=== PATIENT | male | born 1985 | race Caucasian/White ===

== ENCOUNTER 2019-08-25 11:44 | Emergency (ER) | payer OTHER ==
[2019-08-25 12:10] VITALS: BP 124/66
--- NOTE | 2019-08-25 12:36 | UC ---
Lower Extremity/Ankle HPI - HPI Summary HPI Summary: The patient is a 34 yo male who had a near fall when he slipped on ice yesterday jammed right foot c/o pain lateral foot and heal/calf/knee and post thigh muscles fell tight Hx of loose body right knee for which he was supposed to go to [facility] for evaluation but never did able to bear wt with a slight limp - History of Current Complaint Chief Complaint: UCLowerExtremity Stated Complaint: RT LEG INJURY Time Seen by Provider: 08/25/19 12:20 Hx Obtained From: Patient Onset/Duration: Sudden Onset Severity Initially: Mild Severity Currently: Moderate Pain Intensity: 7 Pain Scale Used: 0-10 Numeric Aggravating Factor(s): Standing, Ambulation Alleviating Factor(s): Rest Able to Bear Weight: Yes Legs: 1 - pain 2 - pain 3 - pain 4 - pain 5 - pain - Allergies/Home Medications Allergies/Adverse Reactions: Allergies Allergy/AdvReac Type Severity Reaction Status Date / Time No Known Allergies Allergy Verified 08/25/19 12:03 PMH/Surg Hx/FS Hx/Imm Hx Previously Healthy: Yes - Surgical History Surgical History: None - Social History Alcohol Use: None Substance Use Type: Marijuana Substance Use Comment - Amount & Last Used: daily use Smoking Status (MU): Heavy Every Day Tobacco Smoker Type: Cigarettes Amount Used/How Often: 1/2 PPD Review of Systems All Other Systems Reviewed And Are Negative: Yes Constitutional: Positive: Negative Skin: Positive: Negative Eyes: Positive: Negative ENT: Positive: Negative Respiratory: Positive: Negative Cardiovascular: Positive: Negative Gastrointestinal: Positive: Negative Genitourinary: Positive: Negative Motor: Positive: Negative Neurovascular: Positive: Negative Musculoskeletal: Positive: Arthralgia, Myalgia Neurological: Positive: Negative Psychological: Positive: Negative Physical Exam Triage Information Reviewed: Yes Appearance: Well-Appearing, No Pain Distress Vital Signs: Initial Vital Signs Temp 98.8 F 08/25/19 12:04 Pulse 73 08/25/19 12:04 Resp 15 08/25/19 12:04 BP 124/66 08/25/19 12:04 Pulse Ox 97 08/25/19 12:04 Vital Signs Reviewed: Yes Eyes: Positive: Conjunctiva Clear ENT: Positive: Hearing grossly normal, Uvula midline. Negative: Nasal congestion, Nasal drainage, Trismus, Muffled voice, Hoarse voice Neck: Positive: Supple, Nontender, No Lymphadenopathy Respiratory: Positive: Lungs clear, Normal breath sounds, No respiratory distress Cardiovascular: Positive: RRR Musculoskeletal: Positive: ROM Intact Neurological: Positive: Alert Psychological Exam: Normal Skin Exam: Normal Diagnostics - Radiology No standard instances Radiology Interpretation Completed By: Radiologist Summary of Radiographic Findings: right knee and foot xr negative Lower Extremity Course/Dx - Differential Dx/Diagnosis Provider Diagnosis: Right foot sprain, Strain of right gastrocnemius muscle, Right hamstring muscle strain Discharge ED - Sign-Out/Discharge Documenting (check all that apply): Patient Departure All imaging exams completed and their final reports reviewed: Yes - Discharge Plan Condition: Stable Disposition: HOME Prescriptions: Cyclobenzaprine TAB* [Flexeril TAB*] 10 mg PO ONCE PRN #7 tab PRN Reason: Spasms Patient Education Materials: Foot Sprain (ED), Walking Boot (ED) Forms: *Work Release Referrals: Galo Landers MD [Medical Doctor] - 1 Week (recheck in 1-2 weeks if not better) Additional Instructions: no fracture noted I suggest you take advil or aleve CAM boot rest elevate ice for muscle strain you can take muscle relaxant at night will cause drowsiness - Billing Disposition and Condition Condition: STABLE Disposition: Home
== END 2019-08-25 13:23 | disposition home or self-care (01) ==
LOC: UCCORT 11:44
DX: S93.691A Other sprain of right foot, initial encounter (principal); S86.811A Strain of other muscle(s) and tendon(s) at lower leg level, right leg, initial encounter; S76.811A Strain of other specified muscles, fascia and tendons at thigh level, right thigh, initial encounter; W00.0XXA Fall on same level due to ice and snow, initial encounter; Y92.9 Unspecified place or not applicable
CPT/HCPCS: 99202; G0463